=== PATIENT | female | born 1970 | race Caucasian/White ===

== ENCOUNTER 2025-07-10 22:44 | Emergency (ER) | payer OTHER ==
[~2025-07-10] VITALS: Ht 162.6 cm; Wt 63.5 kg
[2025-07-10 23:00] VITALS: BP 151/72; TEMP 98.5
[2025-07-10] MEDS ORDERED: LORAZEPAM 1 MG TABLET ONE (23:28)
[2025-07-10] MEDS: LORAZEPAM 1 MG TABLET PO ONE (23:31)
[2025-07-11] MEDS ORDERED: PROP20TA7 PO (00:29)
[2025-07-11] MEDS ORDERED: IBUPROFEN 400 MG TABLET PO ONE (00:30)
[2025-07-11] MEDS ORDERED: IBUPROFEN 400 MG TABLET ONE (00:34)
[2025-07-11 00:36] VITALS: O2SAT 99
== END 2025-07-11 00:37 | disposition home or self-care (01) ==
LOC: ER 22:50
DX: F41.0 Panic disorder [episodic paroxysmal anxiety] (principal); Z63.79 Other stressful life events affecting family and household; F41.8 Other specified anxiety disorders